=== PATIENT | female | born 1955 | race Hispanic/Latino ===

== ENCOUNTER 2017-06-28 21:17 | Inpatient (IN) | payer OTHER ==
[2017-06-28 21:17] VITALS: BMI 20.1
[2017-06-28 23:16] LABS: BASO # 0.1 K/uL (0.0-0.2); BASO % 0.6 % (0.0-2.0); EOS # 0.1 K/uL (0.0-0.7); EOS % 0.6 % (0.0-4.0); HEMATOCRIT 37.9 % (34.0-47.0); LYMPH # 1.8 K/uL (1.0-4.3); LYMPH % 16.5 % (20.0-40.0); MEAN CELL VOLUME 97.5 fl (81.0-99.0); MEAN CORPUSCULAR HGB CONC 32.8 g/dL (33.0-37.0); MEAN PLATELET VOLUME 9.7 fl (7.2-11.7); MONO # 0.7 K/uL (0.0-0.8); MONO % 6.3 % (0.0-10.0); NEUT # 8.2 K/uL (1.8-7.0); RED CELL DISTRIBUTION WIDTH 13.4 % (11.5-14.5); WHITE BLOOD COUNT 10.8 K/uL (4.8-10.8)
[2017-06-28 23:24] LABS: ALB/GLOB RATIO 1.3 (1.0-2.1); ALKALINE PHOSPHATASE 123 U/L (38-126); ALT/SGPT 38 U/L (9-52); AST/SGOT 48 U/L (14-36); BILIRUBIN,TOTAL 0.5 mg/dl (0.2-1.3); CALCIUM 9.9 mg/dL (8.4-10.2); CARBON DIOXIDE 22 mmol/L (22-30); CHLORIDE 107 mmol/L (98-107); GFR AFRICAN-AMERICAN > 60; GLUCOSE,RANDOM 92 mg/dL (65-105); POTASSIUM 3.8 MMOL/L (3.6-5.0); SODIUM 140 mmol/l (132-148); TOTAL PROTEIN 8.1 G/DL (6.3-8.2)
--- NOTE | 2017-06-28 23:36 | ED PDOC ---
HPI: Chest Pain Time Seen by Provider: 06/28/17 22:00 Chief Complaint (Nursing): Chest Pain Chief Complaint (Provider): Chest Pain History Per: Patient History/Exam Limitations: no limitations Onset/Duration Of Symptoms: Days (1 day) Current Symptoms Are (Timing): Still Present Additional Complaint(s): 61 y/o female with a past medical history of gastric ulcers and anemia, presents to the ED complaining of left-sided chest pain with an onset of one day. Patient received in field 1 nitro spray, patient took aspirin and nitro sublingual at home, and states pain has decreased. Patient reports of having a headache and resolved shortness of breath, but denies nausea, vomiting, diarrhea , abdominal pain, and any social history. Past Medical History Reviewed: Historical Data, Nursing Documentation, Vital Signs Vital Signs: Last Vital Signs Temp 98.1 F 06/30/17 11:35 Pulse 67 06/30/17 12:17 Resp 15 06/30/17 11:35 BP 105/65 06/30/17 11:35 Pulse Ox 98 06/30/17 12:17 - Medical History PMH: Anemia, Anxiety (when her dog ), Arthritis, CAD, Gastrointestinal Ulcer, Gall Bladder Disease (gallbladder stones), Hepatitis (C - no treatment), Hiatal Hernia, HTN, Hypercholesterolemia, Kidney Stones, Mitral Valve Prolapse, Osteoporosis, Chronic Kidney Disease Denies: HIV (denies) - Family History Family History: States: Unknown Family Hx - Immunization History Hx Tetanus Toxoid Vaccination: No Hx Influenza Vaccination: No Hx Pneumococcal Vaccination: No - Home Medications Home Medications: Ambulatory Orders Medication Instructions Recorded Isosorbide Dinitrate [Isordil] 20 mg PO BID 01/21/16 Lisinopril [Zestril] 20 mg PO DAILY 01/21/16 Simvastatin [Zocor] 20 mg PO DAILY 01/21/16 amLODIPine [Norvasc] 10 mg PO DAILY 01/21/16 Aspirin [Adult Low Dose Aspirin EC] 81 mg PO DAILY 06/29/17 Cyclobenzaprine HCl 10 mg PO TID PRN 06/29/17 [Cyclobenzaprine HCl] Metoprolol Tartrate [Lopressor] 50 mg PO BID 06/29/17 Nitroglycerin [Nitrostat] 0.4 mg SL ASDIR 06/29/17 Ranitidine HCl [Acid Associate Dentist] 150 mg PO BID 06/29/17 - Allergies Allergies/Adverse Reactions: Allergies Allergy/AdvReac Type Severity Reaction Status Date / Time No Known Allergies Allergy Verified 02/21/16 17:37 Review of Systems Cardiovascular: Positive for: Chest Pain (left-sided) Respiratory: Positive for: Shortness of Breath (initially but has been resolved) . Negative for: Cough Gastrointestinal: Negative for: Nausea, Vomiting, Abdominal Pain, Diarrhea Neurological: Positive for: Headache Physical Exam - Reviewed Nursing Documentation Reviewed: Yes Vital Signs Reviewed: Yes - Physical Exam Appears: Positive for: Non-toxic, No Acute Distress Head Exam: Positive for: ATRAUMATIC, NORMOCEPHALIC Skin: Positive for: Normal Color, Warm Eye Exam: Positive for: Normal appearance, EOMI, PERRL ENT: Positive for: Normal ENT Inspection Neck: Positive for: Normal, Painless ROM Cardiovascular/Chest: Positive for: Regular Rate, Rhythm. Negative for: Murmur Respiratory: Positive for: Normal Breath Sounds. Negative for: Respiratory Distress Gastrointestinal/Abdominal: Positive for: Other (midline scar on the abdomen). Negative for: Tenderness Extremity: Positive for: Normal ROM. Negative for: Pedal Edema, Deformity Neurologic/Psych: Positive for: Alert, Oriented (x3) - Laboratory Results Result Diagrams: 06/28/17 22:54 06/28/17 22:54 - ECG ECG: Positive for: Interpreted By Me, Viewed By Il ECG Rhythm: Positive for: Sinus Rhythm (normal) Rate: 67 O2 Sat by Pulse Oximetry: 98 (RA) Pulse Ox Interpretation: Normal Medical Decision Making Medical Decision Making: Time: --23:34 Impression: --61 y/o female with chest pain Plan: --CT angio chest/ Abdomen/ pelvis to rule out aneurysm --Labs --Troponin Reassess --1:16 FINDINGS:CT Angiography Abdomen and Pelvis Without and With Intravenous Contrast Lower thorax: Refer to prior report for chest findings VASCULATURE: Aorta: Abdominal aorta is mildly tortuous. Aortic caliber is normal. There is no aneurysm or dissection. There is perfusion of all major abdominal aortic branches. There are atherosclerotic calcifications at the origin of the celiac artery. There are atherosclerotic calcifications in the proximal renal arteries bilaterally. Celiac trunk and mesenteric arteries: See above. Renal arteries: See above. Iliac arteries: see above ABDOMEN: Liver: unremarkable No mass. Gallbladder and bile ducts: Gallbladder is distended with stones.There is prominence of the common duct. Pancreas: unremarkable Spleen: There are small low attenuation lesions in the spleen difficult to further characterize, unchanged. Adrenals: unremarkable Kidneys and ureters: Kidneys and ureters are unremarkable. Stomach and bowel: There is a moderately large hiatal hernia. There are postsurgical changes about the gastric body. There is a gastrojejunostomy. Gastric wall thickening seen on the prior study has decreased. Rotation is normal. Small bowel is mildly distended with enteric contents and air. There is no obstruction. There is fecalization of the distal and terminal ileum. Appendix is unremarkable. There is moderately large amount of stool throughout the colon. Appendix: unremarkable PELVIS: Bladder: unremarkable Reproductive: Uterus is absent. There are no adnexal masses. ABDOMEN and PELVIS: Intraperitoneal space: There is no free air or free fluid. Bones/joints: There are degenerative changes in the osseus structures. Soft tissues: There are multiple small fat containing ventral hernias. Lymph nodes: unremarkable IMPRESSION: No abdominal aortic aneurysm or dissection; atherosclerotic disease ; gallstones; constipation; moderate size hiatal hernia; postsurgical changes about the stomach --1:40 Waiting on approval from Dr. Fitzpatrick, in order to admit the patient --3:20 Patient to be admitted to Dr. Fitzpatrick. Going to old off on aspirin given history of GI bleed. pt to be admitted to [facility] for cardiac monitoring Scribe Attestation: Documented by Bladimir Fraser acting as a scribe for Josafat Rojas MD. Provider Attestation: All medical record entries made by the Scribe were at my direction and personally dictated by me. I have reviewed the chart and agree that the record accurately reflects my personal performance of the history, physical exam, medical decision making, and the department course for this patient. I have also personally directed, reviewed, and agree with the discharge instructions and disposition. Disposition - Clinical Impression Clinical Impression: Chest pain - Patient ED Disposition Is Patient to be Admitted: Yes Discussed With : Hakan Fitzpatrick (Patient to be Admitted) Comment: 3:20 Doctor Will See Patient In The: Hospital - Disposition Disposition Time: 02:20 Condition: FAIR
[2017-06-28 23:43] LABS: BLOOD UREA NITROGEN 17 mg/dl (7-17)
[2017-06-28] MEDS ORDERED: Iodixanol 320 MG/ML 100 ML BOTTLE IV ONE (23:43)
--- NOTE | 2017-06-29 01:16 | CT ---
EXAM: CT Angiography Chest Without and With Intravenous Contrast CLINICAL HISTORY: 61 years old, female; Pain; Chest pain; Other: R/odissection; Prior surgery; Surgery type: Hysterectomy. Gastric surgery ? ; additional info: Rule out aortic aneurism TECHNIQUE: Axial computed tomographic angiography images of the chest without and with intravenous contrast using pulmonary embolism protocol. All CT scans at this facility use one or more dose reduction techniques, viz.: automated exposure control; ma/kV adjustment per patient size (including targeted exams where dose is matched to indication; i.e. head); or iterative reconstruction technique. MIP reconstructed images were created and reviewed. Coronal and sagittal reformatted images were created and reviewed. CONTRAST: 90 mL of [id number] administered intravenously. COMPARISON: No relevant prior studies available. FINDINGS: Heart, aorta and Pulmonary arteries: Heart size is normal. There is fluid in pericardial recesses. There is no aortic aneurysm or dissection. There is perfusion of the 3 arch vessels. Descending aorta is mildly tortuous. Pulmonary arteries are unremarkable. Lungs and pleural spaces: There is minimal apical scarring. There is no lobar or segmental consolidation. There is minimal atelectasis and scarring at the lung bases. There are no effusions. Mediastinum: Esophagus is unremarkable. There is a moderate size hiatal hernia. There are no pathologically enlarged mediastinal or hilar nodes. Bones/joints: There are no acute osseous abnormalities. Soft tissues: unremarkable Upper abdomen: Refer to following report for abdominal findings IMPRESSION: No aneurysm, dissection or pulmonary embolus, no focal pneumonia; hiatal hernia EXAM: CT Angiography Abdomen and Pelvis Without and With Intravenous Contrast EXAM DATE/TIME: 06/28/2017 11:34 PM CLINICAL HISTORY: 61 years old, female; Pain; Chest pain; Other: R/odissection; Prior surgery; Surgery type: Hysterectomy. Gastric surgery ? ; additional info: Rule out aortic aneurism TECHNIQUE: Axial computed tomographic angiography images of the abdomen and pelvis without and with intravenous contrast. All CT scans at this facility use one or more dose reduction techniques, viz.: automated exposure control; ma/kV adjustment per patient size (including targeted exams where dose is matched to indication; i.e. head); or iterative reconstruction technique. MIP reconstructed images were created and reviewed. Coronal and sagittal reformatted images were created and reviewed. CONTRAST: 90 mL of [id number] administered intravenously. COMPARISON: CT - CHEST,ABD,PEL W/IV PO CONTRAST 2016-01-21 13:30 FINDINGS: Lower thorax: Refer to prior report for chest findings VASCULATURE: Aorta: Abdominal aorta is mildly tortuous. Aortic caliber is normal. There is no aneurysm or dissection. There is perfusion of all major abdominal aortic branches. There are atherosclerotic calcifications at the origin of the celiac artery. There are atherosclerotic calcifications in the proximal renal arteries bilaterally. Celiac trunk and mesenteric arteries: See above. Renal arteries: See above. Iliac arteries: see above ABDOMEN: Liver: unremarkable No mass. Gallbladder and bile ducts: Gallbladder is distended with stones.There is prominence of the common duct. Pancreas: unremarkable Spleen: There are small low attenuation lesions in the spleen difficult to further characterize, unchanged. Adrenals: unremarkable Kidneys and ureters: Kidneys and ureters are unremarkable. Stomach and bowel: There is a moderately large hiatal hernia. There are postsurgical changes about the gastric body. There is a gastrojejunostomy. Gastric wall thickening seen on the prior study has decreased. Rotation is normal. Small bowel is mildly distended with enteric contents and air. There is no obstruction. There is fecalization of the distal and terminal ileum. Appendix is unremarkable. There is moderately large amount of stool throughout the colon. Appendix: unremarkable PELVIS: Bladder: unremarkable Reproductive: Uterus is absent. There are no adnexal masses. ABDOMEN and PELVIS: Intraperitoneal space: There is no free air or free fluid. Bones/joints: There are degenerative changes in the osseus structures. Soft tissues: There are multiple small fat containing ventral hernias. Lymph nodes: unremarkable IMPRESSION: No abdominal aortic aneurysm or dissection; atherosclerotic disease; gallstones; constipation; moderate size hiatal hernia; postsurgical changes about the stomach Additional findings as described above.
[2017-06-29] MEDS: Acetaminophen-Codeine 300/30 mg Tab PO PRN (05:41)
--- NOTE | 2017-06-29 07:58 | CP.PCM.CON ---
<Nataly Butterfield - Last Filed: 06/29/17 08:24> History of Present Illness - History of Present Illness History of Present Illness: Gastroenterology Fellow/PGY5 Consult Note 61 year old female with history of CAD, Hypertension, Hyperlipidemia, Hepatitis C ([id number] VL 1,[id number]/2016), and symptomatic anemia 2/2 PUD complicated by GOO s/p retrocolic gastrojejunostomy 02/2016 presenting with chest pain. Patient notes left sided stabbing chest pain and pressure while at rest yesterday. Chest pain relieved with nitroglycerin and aspirin with endorsed pain free state this morning. She notes episode of palpitations and sensation of heart racing this morning. She notes the chest pain is similar to prior intermittent episodes. Since presentation, she mentions issues with swallowing solids for the last six weeks that is progressively worsening to point of changing diet to puree and tolerating sips of liquids. Associated vomiting within five minutes of oral intake. Notes bowel movement once a week with endorsed bowel habit prior to gastrojejunostomy of twice a week. Denies prior use of laxatives, stool softeners, or fiber supplements. Multiple prior EGDs - showing pyloric ulcers with GOO of duodenum and prior colonoscopy 30 years ago endorsed to be normal. Family- Father- Lung cnacer, prostate cancer, mother- ovarian cancer; denies stomach cancer, colon cancer Social- denies tobacco, alcohol, illicit drug use Surgery- retrocolic gastrojejunostomy/vagotomy/lymph node biopsy 02/2016, hysterectomy, surgery for ruptured ovarian cyst at 22 yo Review of Systems - Review of Systems Review of Systems: 12-point review of systems negative except for as above Past Patient History - Infectious Disease Hx of Infectious Diseases: None - Past Medical History & Family History Past Medical History?: Yes - Past Social History Smoking Status: Never Smoked - CARDIAC Hx Cardiac Disorders: Yes Hx Hypercholesterolemia: Yes Hx Hypertension: Yes Hx Mitral Valve Prolapse: Yes - PULMONARY Hx Respiratory Disorders: No - NEUROLOGICAL Hx Neurological Disorder: Yes Hx Dizziness: Yes Hx Syncope: Yes - HEENT Hx HEENT Problems: No - RENAL Hx Chronic Kidney Disease: Yes Hx Kidney Stones: Yes - ENDOCRINE/METABOLIC Hx Endocrine Disorders: No - HEMATOLOGICAL/ONCOLOGICAL Hx Blood Disorders: Yes Hx AIDS: No Hx Anemia: Yes Hx Human Immunodeficiency Virus (HIV): No - INTEGUMENTARY Hx Dermatological Problems: No - MUSCULOSKELETAL/RHEUMATOLOGICAL Hx Musculoskeletal Disorders: Yes Hx Arthritis: Yes Hx Falls: No Hx Osteoporosis: Yes - GASTROINTESTINAL Hx Gastrointestinal Disorders: Yes Hx Gall Bladder Disease: Yes (gallbladder stones) Hx Ulcer: Yes - GENITOURINARY/GYNECOLOGICAL Hx Genitourinary Disorders: Yes Hx Urinary Tract Infection: Yes (mult. urinary tract infections as per patient) Other/Comment: renal cysr - PSYCHIATRIC Hx Psychophysiologic Disorder: No Hx Substance Use: No - SURGICAL HISTORY Hx Surgeries: Yes Hx Hysterectomy: Yes (total hysterectomy at age 31) - ANESTHESIA Hx Anesthesia: Yes Hx Anesthesia Reactions: No (denies) Hx Malignant Hyperthermia: No (denies) Meds Allergies/Adverse Reactions: Allergies Allergy/AdvReac Type Severity Reaction Status Date / Time No Known Allergies Allergy Verified 02/21/16 17:37 - Medications Medications: Current Medications Acetaminophen/Codeine Phosphate (Tylenol/Codeine 300 Mg/30 Mg) 1 tab PO BID PRN PRN Reason: Pain, moderate (4-7) Last Admin: 06/29/17 05:41 Dose: 1 tab Amlodipine Besylate (Norvasc) 10 mg PO DAILY [facility] Aspirin (Ecotrin) 81 mg PO DAILY [facility] Atorvastatin Calcium (Lipitor) 10 mg PO DAILY [facility] Cyclobenzaprine HCl (Flexeril) 10 mg PO TID PRN PRN Reason: Muscle spasm Enoxaparin Sodium (Lovenox) 40 mg SC DAILY [facility] PRN Reason: Protocol Famotidine (Pepcid) 20 mg PO BID [facility] Isosorbide Dinitrate (Isordil) 20 mg PO BID [facility] Lisinopril (Zestril) 20 mg PO DAILY [facility] Metoprolol Tartrate (Lopressor) 50 mg PO BID [facility] Nitroglycerin (Nitrostat Sl Tab) 0.4 mg SL Q5MIN PRN PRN Reason: chest, anginal discomfort Physical Exam - Constitutional Appears: Non-toxic, No Acute Distress - Head Exam Head Exam: ATRAUMATIC, NORMOCEPHALIC - Eye Exam Eye Exam: EOMI, PERRL Pupil Exam: PERRL. absent: Miosis, Mydriatic - ENT Exam ENT Exam: Mucous Membranes Moist, Normal Oropharynx - Neck Exam Neck exam: Positive for: Full Rom, Normal Inspection - Respiratory Exam Respiratory Exam: Clear to Auscultation Bilateral. absent: Rales, Rhonchi, Wheezes - Cardiovascular Exam Cardiovascular Exam: RRR, +S1, +S2. absent: Gallop, Rubs - GI/Abdominal Exam GI & Abdominal Exam: Normal Bowel Sounds, Soft. absent: Distended, Firm, Guarding, Organomegaly, Rebound, Rigid, Tenderness - Extremities Exam Extremities exam: Positive for: normal inspection. Negative for: pedal edema - Neurological Exam Neurological exam: Alert - Psychiatric Exam Psychiatric exam: Normal Affect, Normal Mood - Skin Skin Exam: Dry, Intact, Normal Color, Warm Results - Vital Signs Recent Vital Signs: Last Vital Signs Temp 98.0 F 06/29/17 03:50 Pulse 75 06/29/17 03:50 Resp 20 06/29/17 04:25 BP 147/89 06/29/17 03:50 Pulse Ox 98 06/29/17 03:50 - Labs Result Diagrams: 06/28/17 22:54 06/28/17 22:54 Labs: Laboratory Results - last 24 hr 06/28/17 06/28/17 22:54 22:54 WBC 10.8 RBC 3.89 Hgb 12.4 Hct 37.9 MCV 97.5 D MCH 32.0 H MCHC 32.8 L RDW 13.4 Plt Count 263 MPV 9.7 Neut % (Auto) 76.0 H Lymph % (Auto) 16.5 L Dyer % (Auto) 6.3 Eos % (Auto) 0.6 Baso % (Auto) 0.6 Neut # 8.2 H Lymph # 1.8 Dyer # 0.7 Eos # 0.1 Baso # 0.1 Sodium 140 Potassium 3.8 Chloride 107 Carbon Dioxide 22 Anion Gap 15 BUN 17 Creatinine 1.1 Est GFR ( Amer) > 60 Est GFR (Non-Af Amer) 51 Random Glucose 92 Calcium 9.9 Total Bilirubin 0.5 AST 48 H ALT 38 Alkaline Phosphatase 123 Troponin I < 0.0120 Total Protein 8.1 Albumin 4.5 Globulin 3.5 Albumin/Globulin Ratio 1.3 Assessment & Plan - Assessment and Plan (Free Text) Assessment: 61 year old female with history of CAD, Hypertension, Hyperlipidemia, Hepatitis C ([id number] VL 1,027,539-01/2016), and symptomatic anemia 2/2 PUD complicated by GOO s/p retrocolic gastrojejunostomy 02/2016 presenting with chest pain. Active treatment of chest pain rule out ACS with GI consultation for dysphagia with history of GOO. CTA C/A/P showing moderate sized hiatal hernia and constipation with aortic aneurysm and dissection ruled out. Multiple prior EGDs 7-02/2016 showing pyloric ulcers with GOO of duodenum and prior colonoscopy 30 years ago endorsed to be normal. Plan: >first set cardiac markers negative >follow up serial cardiac markers >pending cardiology consultation >await cardiology recommendation for clearance to proceed with endoscopy >once cleared by cardiaology- consider EGD to evaluate esophageal pathology, PUD , recurrence GOO >supportive care: antiemetics >will follow clinical course <Yamileth Garza MD - Last Filed: 06/30/17 12:38> Meds - Medications Medications: Current Medications Acetaminophen/Codeine Phosphate (Tylenol/Codeine 300 Mg/30 Mg) 1 tab PO BID PRN PRN Reason: Pain, moderate (4-7) Last Admin: 06/30/17 09:09 Dose: 1 tab Atorvastatin Calcium (Lipitor) 10 mg PO DAILY [facility] Last Admin: 06/30/17 09:03 Dose: 10 mg Cholestyramine Resin (Questran) 4 gm PO DAILY [facility] Last Admin: 06/30/17 12:20 Dose: 4 gm Cyclobenzaprine HCl (Flexeril) 10 mg PO TID PRN PRN Reason: Muscle spasm Last Admin: 06/30/17 08:28 Dose: 10 mg Enoxaparin Sodium (Lovenox) 40 mg SC DAILY [facility] PRN Reason: Protocol Last Admin: 06/30/17 08:30 Dose: Not Given Lisinopril (Zestril) 20 mg PO DAILY [facility] Last Admin: 06/30/17 08:27 Dose: 20 mg Metoprolol Tartrate (Lopressor) 50 mg PO BID [facility] Last Admin: 06/30/17 08:26 Dose: 50 mg Nitroglycerin (Nitrostat Sl Tab) 0.4 mg SL Q5MIN PRN PRN Reason: chest, anginal discomfort Pantoprazole Sodium (Protonix Inj) 40 mg IVP DAILY [facility] Last Admin: 06/30/17 12:20 Dose: 40 mg Results - Vital Signs Recent Vital Signs: Last Vital Signs Temp 97.6 F 06/30/17 12:31 Pulse 20 L 06/30/17 12:31 Resp 18 06/30/17 12:31 BP 104/68 06/30/17 12:31 Pulse Ox 94 L 06/30/17 12:31 - Labs Result Diagrams: 06/28/17 22:54 06/28/17 22:54 Labs: Laboratory Results - last 24 hr 06/29/17 15:29 Troponin I < 0.0120 Attending/Attestation - Attestation I have personally seen and examined this patient.: Yes I have fully participated in the care of the patient.: Yes I have reviewed all pertinent clinical information: Yes Notes (Text): 06/30/17 12:35 Patient seen at bedside with Gi fellow. This is a 61 year old female with history of CAD, Hypertension, Hyperlipidemia, Hepatitis C ([id number] VL 1,027, 539-01/2016), and symptomatic anemia 2/2 PUD complicated by GOO s/p retrocolic gastrojejunostomy 02/2016 presenting with chest pain. She wsa seen two weeks ago in my office for similar complains and was scheduled for EGd which she refused. She was given nexium but she was non complaint in her medication regimen as she says she watched on TV that it leads to bleeding. Now she is admitted with dysphagia which is chronic for past 6 months. Cardiology is ruling out ACS. CTA C/A/P showing moderate sized hiatal hernia and constipation with aortic aneurysm and dissection ruled out. Multiple prior EGDs -02/2016 showing pyloric ulcers with GOO of duodenum and prior colonoscopy 30 years ago endorsed to be normal. Will continue supportive care and if she is cleared from cardiology point will schedule for EGD. Continue PPI and pureed diet.
[2017-06-29 08:58] LABS: CHOLESTEROL 139 mg/dL (0-199)
[2017-06-29] MEDS ORDERED: LISINOPRIL 20 MG PO SCH (09:00)
[2017-06-29] MEDS ORDERED: Patient's Own Med (Ranitidine Hcl [Acid Reducer] 150 mg) PO SCH (09:00)
--- NOTE | 2017-06-29 09:45 | CP.PCM.HP ---
<Jackie Mchugh - Last Filed: 06/29/17 09:54> History of Present Illness - History of Present Illness History of Present Illness: 61 y/o female with a PMHx of CAD, HTN, Hepatitis C, gastric ulcers and anemia. As per records patient presented yesterday to the ED complaining of left-sided chest pain with an onset of one day. Patient received in field 1 nitro spray, patient took aspirin and nitro sublingual at home, and stated pain had decreased. Patient seen and examined in Telemetry unit this morning with attending Dr. Fitzpatrick Patient denies chest pain, SOB, N/V, epigastric pain or other complains at this evaluation. Has been afebrile, and rest of VS stable WNL. No events overnight. Present on Admission - Present on Admission Any Indicators Present on Admission: No History of DVT/PE: No History of Uncontrolled Diabetes: No Urinary Catheter: No Decubitus Ulcer Present: No Review of Systems - Review of Systems All systems: reviewed and no additional remarkable complaints except (as per HPI ) Past Patient History - Infectious Disease Hx of Infectious Diseases: None - Past Medical History & Family History Past Medical History?: Yes - Past Social History Smoking Status: Never Smoked - CARDIAC Hx Cardiac Disorders: Yes Hx Hypercholesterolemia: Yes Hx Hypertension: Yes Hx Mitral Valve Prolapse: Yes - PULMONARY Hx Respiratory Disorders: No - NEUROLOGICAL Hx Neurological Disorder: Yes Hx Dizziness: Yes Hx Syncope: Yes - HEENT Hx HEENT Problems: No - RENAL Hx Chronic Kidney Disease: Yes Hx Kidney Stones: Yes - ENDOCRINE/METABOLIC Hx Endocrine Disorders: No - HEMATOLOGICAL/ONCOLOGICAL Hx Blood Disorders: Yes Hx AIDS: No Hx Anemia: Yes Hx Human Immunodeficiency Virus (HIV): No - INTEGUMENTARY Hx Dermatological Problems: No - MUSCULOSKELETAL/RHEUMATOLOGICAL Hx Musculoskeletal Disorders: Yes Hx Arthritis: Yes Hx Falls: No Hx Osteoporosis: Yes - GASTROINTESTINAL Hx Gastrointestinal Disorders: Yes Hx Gall Bladder Disease: Yes (gallbladder stones) Hx Ulcer: Yes - GENITOURINARY/GYNECOLOGICAL Hx Genitourinary Disorders: Yes Hx Urinary Tract Infection: Yes (mult. urinary tract infections as per patient) Other/Comment: renal cysr - PSYCHIATRIC Hx Psychophysiologic Disorder: No Hx Substance Use: No - SURGICAL HISTORY Hx Surgeries: Yes Hx Hysterectomy: Yes (total hysterectomy at age 31) - ANESTHESIA Hx Anesthesia: Yes Hx Anesthesia Reactions: No (denies) Hx Malignant Hyperthermia: No (denies) Meds Allergies/Adverse Reactions: Allergies Allergy/AdvReac Type Severity Reaction Status Date / Time No Known Allergies Allergy Verified 02/21/16 17:37 Physical Exam - Constitutional Appears: Non-toxic, No Acute Distress - ENT Exam ENT Exam: Mucous Membranes Moist - Respiratory Exam Respiratory Exam: Clear to Auscultation Bilateral, NORMAL BREATHING PATTERN. absent: Rales, Rhonchi, Wheezes, Respiratory Distress - Cardiovascular Exam Cardiovascular Exam: REGULAR RHYTHM, RRR, +S1, +S2 - GI/Abdominal Exam GI & Abdominal Exam: Normal Bowel Sounds, Soft. absent: Distended, Guarding, Tenderness - Extremities Exam Extremities exam: Positive for: normal inspection. Negative for: calf tenderness, pedal edema - Neurological Exam Neurological exam: Alert, Oriented x3 - Skin Skin Exam: Dry, Intact, Normal Color Results - Vital Signs Recent Vital Signs: Last Vital Signs Temp 97.9 F 06/29/17 08:08 Pulse 68 06/29/17 08:08 Resp 18 06/29/17 08:08 BP 125/81 06/29/17 08:08 Pulse Ox 97 06/29/17 08:08 - Labs Result Diagrams: 06/28/17 22:54 06/28/17 22:54 Labs: Laboratory Results - last 24 hr 06/28/17 06/28/17 06/29/17 22:54 22:54 08:40 WBC 10.8 RBC 3.89 Hgb 12.4 Hct 37.9 MCV 97.5 D MCH 32.0 H MCHC 32.8 L RDW 13.4 Plt Count 263 MPV 9.7 Neut % (Auto) 76.0 H Lymph % (Auto) 16.5 L [place] % (Auto) 6.3 Eos % (Auto) 0.6 Baso % (Auto) 0.6 Neut # 8.2 H Lymph # 1.8 [place] # 0.7 Eos # 0.1 Baso # 0.1 PT INR Sodium 140 Potassium 3.8 Chloride 107 Carbon Dioxide 22 Anion Gap 15 BUN 17 Creatinine 1.1 Est GFR ( Amer) > 60 Est GFR (Non-Af Amer) 51 Random Glucose 92 Calcium 9.9 Total Bilirubin 0.5 AST 48 H ALT 38 Alkaline Phosphatase 123 Troponin I < 0.0120 < 0.0120 Total Protein 8.1 Albumin 4.5 Globulin 3.5 Albumin/Globulin Ratio 1.3 Triglycerides 108 Cholesterol 139 LDL Cholesterol Direct 43 HDL Cholesterol 64 06/29/17 08:40 WBC RBC Hgb Hct MCV MCH MCHC RDW Plt Count MPV Neut % (Auto) Lymph % (Auto) [place] % (Auto) Eos % (Auto) Baso % (Auto) Neut # Lymph # [place] # Eos # Baso # PT 11.2 INR 1.0 Sodium Potassium Chloride Carbon Dioxide Anion Gap BUN Creatinine Est GFR ( Amer) Est GFR (Non-Af Amer) Random Glucose Calcium Total Bilirubin AST ALT Alkaline Phosphatase Troponin I Total Protein Albumin Globulin Albumin/Globulin Ratio Triglycerides Cholesterol LDL Cholesterol Direct HDL Cholesterol Assessment & Plan (1) Chest pain Assessment and Plan: R/O ACS Telemetry unit Continues cardiac monitoring Troponin x 1 neg f/u Troponin I x 2 c/w aspirin, B-lavern, Statin PO f/u lipid profile Carcdiology consulted, Dr. Barrett, recommendations appreciated Status: Acute (2) Hypertension Assessment and Plan: Controlled c/w home meds: amlodipine and Metoprolol c/w lisinopril f/u BP Status: Chronic (3) History of GI bleed Assessment and Plan: No evidence of active GI bleeding at this time H/H: wnl c/w Pepcid GI consulted, Dr. Garza, for possible EGD f/u Dr. Garza recommendations, appreciated if EGD, will need Cardiology clearance Status: Chronic (4) DVT prophylaxis Assessment and Plan: lovenox Status: Acute - Date & Time Date: 06/29/17 Time: 07:50 <Hakan Fitzpatrick K - Last Filed: 07/01/17 11:18> Results - Vital Signs Recent Vital Signs: Last Vital Signs Temp 98.8 F 07/01/17 10:30 Pulse 73 07/01/17 10:44 Resp 18 07/01/17 08:00 BP 107/72 07/01/17 10:44 Pulse Ox 96 07/01/17 08:00 - Labs Result Diagrams: 06/28/17 22:54 06/28/17 22:54 Assessment & Plan - Assessment and Plan (Free Text) Assessment: Patient was personally seen and examined by me in rounds with residents. Available labs and diagnostic data reviewed. Case, Patient's condition and management plan discussed with residents in rounds. Agree with resident's progress note. Plan: As ordered.
[2017-06-29] MEDS: Enoxaparin 40 mg Syringe SC SCH (10:24)
[2017-06-29] MEDS ORDERED: Pantoprazole 40 mg EC Tab PO SCH (12:30)
--- NOTE | 2017-06-29 17:36 | CARD ---
APPROVED REPORT EKG Measurement Heart [id number] <Conclusion> Normal sinus rhythm Nonspecific ST abnormality Abnormal ECG
[2017-06-29] MEDS ORDERED: raNITIdine HCl 150 mg/10 ml Soln Cup PO SCH (22:00)
[2017-06-30] MEDS: Enoxaparin 40 mg Syringe SC SCH (08:30)
[2017-06-30] MEDS: Acetaminophen-Codeine 300/30 mg Tab PO PRN ×2 (09:09→20:44)
--- NOTE | 2017-06-30 10:50 | CP.PCM.PCO ---
Assessment/Plan - Assessment and Plan (Free Text) Assessment: Pt seen and examined VSS, denies chest pain, shortness of breath. Plan for egd with dr joe this morning. Plan discussed with dr villegas. Ok to proceed with EGD
[2017-06-30] MEDS ORDERED: Lactated Ringer's 1,000 ML IV ONE (11:01)
[2017-06-30] MEDS ORDERED: Lidocaine 2% MPF (5 ml) Inj ONE (11:04)
[2017-06-30] MEDS ORDERED: Propofol 10 mg/ml Inj (20 ML) ONE (11:04)
--- NOTE | 2017-06-30 11:07 | CP.PCM.CON ---
History of Present Illness - History of Present Illness History of Present Illness: 61 yo female admitted with chest burning and difficulty swallowing. In 2016 was having abdominal and food retention. A gastric outlet obstruction was found due to PUD and gastrojejunostomy was performed. Had been on ranitidine 150 QD prior to admission.. Over past 6 weeks progressive difficulty ingesting solids. Lately uing purees and liquids. Vomiting 5 minutes after eating. Review of Systems - Constitutional Constitutional: absent: Chills - EENT Eyes: absent: Blurred Vision Nose/Mouth/Throat: absent: Epistaxis - Cardiovascular Cardiovascular: Chest Pain - Respiratory Respiratory: absent: Cough - Gastrointestinal Gastrointestinal: Abdominal Pain Past Patient History - Infectious Disease Hx of Infectious Diseases: None - Past Medical History & Family History Past Medical History?: Yes - Past Social History Smoking Status: Never Smoked - CARDIAC Hx Cardiac Disorders: Yes Hx Hypercholesterolemia: Yes Hx Hypertension: Yes Hx Mitral Valve Prolapse: Yes - PULMONARY Hx Respiratory Disorders: No - NEUROLOGICAL Hx Neurological Disorder: Yes Hx Dizziness: Yes Hx Syncope: Yes - HEENT Hx HEENT Problems: No - RENAL Hx Chronic Kidney Disease: Yes Hx Kidney Stones: Yes - ENDOCRINE/METABOLIC Hx Endocrine Disorders: No - HEMATOLOGICAL/ONCOLOGICAL Hx Blood Disorders: Yes Hx AIDS: No Hx Anemia: Yes Hx Human Immunodeficiency Virus (HIV): No - INTEGUMENTARY Hx Dermatological Problems: No - MUSCULOSKELETAL/RHEUMATOLOGICAL Hx Musculoskeletal Disorders: Yes Hx Arthritis: Yes Hx Falls: No Hx Osteoporosis: Yes - GASTROINTESTINAL Hx Gastrointestinal Disorders: Yes Hx Gall Bladder Disease: Yes (gallbladder stones) Hx Ulcer: Yes - GENITOURINARY/GYNECOLOGICAL Hx Genitourinary Disorders: Yes Hx Urinary Tract Infection: Yes (mult. urinary tract infections as per patient) Other/Comment: renal cysr - PSYCHIATRIC Hx Psychophysiologic Disorder: No Hx Substance Use: No - SURGICAL HISTORY Hx Surgeries: Yes Hx Hysterectomy: Yes (total hysterectomy at age 31) - ANESTHESIA Hx Anesthesia: Yes Hx Anesthesia Reactions: No (denies) Hx Malignant Hyperthermia: No (denies) Meds Allergies/Adverse Reactions: Allergies Allergy/AdvReac Type Severity Reaction Status Date / Time No Known Allergies Allergy Verified 02/21/16 17:37 - Medications Medications: Current Medications Acetaminophen/Codeine Phosphate (Tylenol/Codeine 300 Mg/30 Mg) 1 tab PO BID PRN PRN Reason: Pain, moderate (4-7) Last Admin: 06/30/17 09:09 Dose: 1 tab Amlodipine Besylate (Norvasc) 10 mg PO DAILY [facility] Last Admin: 06/30/17 08:27 Dose: 10 mg Aspirin (Ecotrin) 81 mg PO DAILY [facility] Last Admin: 06/30/17 08:27 Dose: 81 mg Atorvastatin Calcium (Lipitor) 10 mg PO DAILY [facility] Last Admin: 06/30/17 09:03 Dose: 10 mg Cyclobenzaprine HCl (Flexeril) 10 mg PO TID PRN PRN Reason: Muscle spasm Last Admin: 06/30/17 08:28 Dose: 10 mg Enoxaparin Sodium (Lovenox) 40 mg SC DAILY [facility] PRN Reason: Protocol Last Admin: 06/30/17 08:30 Dose: Not Given Isosorbide Dinitrate (Isordil) 20 mg PO BID [facility] Last Admin: 06/30/17 08:26 Dose: 20 mg Lisinopril (Zestril) 20 mg PO DAILY [facility] Last Admin: 06/30/17 08:27 Dose: 20 mg Metoprolol Tartrate (Lopressor) 50 mg PO BID [facility] Last Admin: 06/30/17 08:26 Dose: 50 mg Nitroglycerin (Nitrostat Sl Tab) 0.4 mg SL Q5MIN PRN PRN Reason: chest, anginal discomfort Physical Exam - Constitutional Appears: Well - Head Exam Head Exam: NORMAL INSPECTION - Eye Exam Eye Exam: Normal appearance Pupil Exam: PERRL - Neck Exam Neck exam: Positive for: Normal Inspection - Respiratory Exam Respiratory Exam: NORMAL BREATHING PATTERN - Cardiovascular Exam Cardiovascular Exam: REGULAR RHYTHM - GI/Abdominal Exam GI & Abdominal Exam: Normal Bowel Sounds, Soft Results - Vital Signs Recent Vital Signs: Last Vital Signs Temp 97.6 F 06/30/17 08:00 Pulse 80 06/30/17 08:27 Resp 18 06/30/17 08:00 BP 120/75 06/30/17 08:27 Pulse Ox 97 06/30/17 08:00 - Labs Result Diagrams: 06/28/17 22:54 06/28/17 22:54 Labs: Laboratory Results - last 24 hr 06/29/17 06/29/17 08:40 15:29 Hemoglobin A1c 5.6 Troponin I < 0.0120 Assessment & Plan (1) Dysphagia Assessment and Plan: Possible esophageal or gastric obstruction/ inflammation. Will evaluate with upper endoscopy. Status: Acute Priority: Medium
[2017-06-30] MEDS: Cholestyramine 4 gm/Pkt UD PO SCH (12:20)
[2017-06-30 18:37] VITALS: RESP 18
--- NOTE | 2017-06-30 19:37 | CP.PCM.PN ---
<Jackie Mchugh - Last Filed: 06/30/17 19:34> Subjective - Date & Time of Evaluation Date of Evaluation: 06/30/17 Time of Evaluation: 07:05 - Subjective Subjective: Patient seen and examined with attending Dr. Fitzpatrick in telemetry unit this morning. Patient feels well, chest pain free, and denies any complains at this evaluation. Afebrile, VS stable WNL Had an uneventful night Objective - Vital Signs/Intake and Output Vital Signs (last 24 hours): Temp Pulse Resp BP Pulse Ox 99.6 F 73 18 107/75 96 06/30/17 18:36 06/30/17 18:36 06/30/17 18:36 06/30/17 18:36 06/30/17 18:36 Intake and Output: 06/30/17 07/01/17 18:59 06:59 Intake Total 100 Balance 100 - Medications Medications: Current Medications Acetaminophen/Codeine Phosphate (Tylenol/Codeine 300 Mg/30 Mg) 1 tab PO BID PRN PRN Reason: Pain, moderate (4-7) Last Admin: 06/30/17 09:09 Dose: 1 tab Atorvastatin Calcium (Lipitor) 10 mg PO DAILY [facility] Last Admin: 06/30/17 09:03 Dose: 10 mg Cholestyramine Resin (Questran) 4 gm PO DAILY [facility] Last Admin: 06/30/17 12:20 Dose: 4 gm Cyclobenzaprine HCl (Flexeril) 10 mg PO TID PRN PRN Reason: Muscle spasm Last Admin: 06/30/17 08:28 Dose: 10 mg Enoxaparin Sodium (Lovenox) 40 mg SC DAILY [facility] PRN Reason: Protocol Last Admin: 06/30/17 08:30 Dose: Not Given Lisinopril (Zestril) 20 mg PO DAILY [facility] Last Admin: 06/30/17 08:27 Dose: 20 mg Metoprolol Tartrate (Lopressor) 50 mg PO BID [facility] Last Admin: 06/30/17 16:38 Dose: 50 mg Nitroglycerin (Nitrostat Sl Tab) 0.4 mg SL Q5MIN PRN PRN Reason: chest, anginal discomfort Pantoprazole Sodium (Protonix Inj) 40 mg IVP DAILY [facility] Last Admin: 06/30/17 12:20 Dose: 40 mg - Labs Labs: 06/28/17 22:54 12/11/17 22:54 PT 11.2 Seconds (9.8-13.1) 06/29/17 08:40 INR 1.0 (0.9-1.2) 06/29/17 08:40 - Additional Findings Additional findings: Constitutional Appears: Non-toxic, No Acute Distress - ENT Exam ENT Exam: Mucous Membranes Moist - Respiratory Exam Respiratory Exam: Clear to Auscultation Bilateral, NORMAL BREATHING PATTERN. absent: Rales, Rhonchi, Wheezes, Respiratory Distress - Cardiovascular Exam Cardiovascular Exam: REGULAR RHYTHM, RRR, +S1, +S2 - GI/Abdominal Exam GI & Abdominal Exam: Normal Bowel Sounds, Soft. absent: Distended, Guarding, Tenderness - Extremities Exam Extremities exam: Positive for: normal inspection. Negative for: calf tenderness, pedal edema - Neurological Exam Neurological exam: Alert, Oriented x3 - Skin Skin Exam: Dry, Intact, Normal Color Assessment and Plan (1) Chest pain Assessment & Plan: asymptomatic troponin x 3 negative pt had a cardiac cath last year in [facility]. Will get report as per Cardiology recommendations, Dr. Barrett F/u Dr. Barrett recommendations. Appreciated Status: Acute (2) Hypertension Status: Chronic (3) History of GI bleed Assessment & Plan: awaiting for Dr. Russell evaluation for possible EGD Dr. Russell consulted. Recommendations appreciated Status: Chronic (4) DVT prophylaxis Assessment & Plan: lovenox Status: Acute <Hakan Fitzpatrick K - Last Filed: 07/01/17 11:20> Objective - Vital Signs/Intake and Output Vital Signs (last 24 hours): Temp Pulse Resp BP Pulse Ox 98.8 F 73 18 107/72 96 07/01/17 10:30 07/01/17 10:44 07/01/17 08:00 07/01/17 10:44 07/01/17 08:00 - Medications Medications: Current Medications Acetaminophen/Codeine Phosphate (Tylenol/Codeine 300 Mg/30 Mg) 1 tab PO BID PRN PRN Reason: Pain, moderate (4-7) Last Admin: 07/01/17 10:50 Dose: 1 tab Atorvastatin Calcium (Lipitor) 10 mg PO DAILY [facility] Last Admin: 07/01/17 10:45 Dose: 10 mg Cholestyramine Resin (Questran) 4 gm PO DAILY [facility] Last Admin: 07/01/17 10:46 Dose: 4 gm Cyclobenzaprine HCl (Flexeril) 10 mg PO TID PRN PRN Reason: Muscle spasm Last Admin: 06/30/17 08:28 Dose: 10 mg Enoxaparin Sodium (Lovenox) 40 mg SC DAILY [facility] PRN Reason: Protocol Last Admin: 07/01/17 10:45 Dose: Not Given Lisinopril (Zestril) 20 mg PO DAILY [facility] Last Admin: 07/01/17 10:44 Dose: 20 mg Metoprolol Tartrate (Lopressor) 50 mg PO BID [facility] Last Admin: 07/01/17 10:44 Dose: 50 mg Nitroglycerin (Nitrostat Sl Tab) 0.4 mg SL Q5MIN PRN PRN Reason: chest, anginal discomfort Pantoprazole Sodium (Protonix Inj) 40 mg IVP DAILY [facility] Last Admin: 07/01/17 10:46 Dose: 40 mg - Labs Labs: 06/28/17 22:54 06/28/17 22:54 PT 11.2 Seconds (9.8-13.1) 06/29/17 08:40 INR 1.0 (0.9-1.2) 06/29/17 08:40 Assessment and Plan - Assessment and Plan (Free Text) Assessment: Patient was personally seen and examined by me in rounds with residents. Available labs and diagnostic data reviewed. Case, Patient's condition and management plan discussed with residents in rounds. Agree with resident's progress note. Plan: As ordered.
--- NOTE | 2017-07-01 01:12 | CP.PCM.CON ---
History of Present Illness - History of Present Illness History of Present Illness: Consultation for evaluation of chest pain HPI: Review of Systems - Review of Systems All systems: reviewed and no additional remarkable complaints except - Constitutional Constitutional: As Per HPI - EENT Eyes: As Per HPI Ears: As Per HPI Nose/Mouth/Throat: As Per HPI - Breasts Breasts: As Per HPI - Cardiovascular Cardiovascular: As Per HPI, Chest Pain - Respiratory Respiratory: As Per HPI - Gastrointestinal Gastrointestinal: As Per HPI - Genitourinary Genitourinary: As Per HPI - Reproductive: Female Reproductive:Female: As Per HPI - Menstruation Menstruation: As Per HPI - Musculoskeletal Musculoskeletal: As Per HPI - Integumentary Integumentary: As Per HPI - Neurological Neurological: As Per HPI - Psychiatric Psychiatric: As Per HPI - Endocrine Endocrine: As Per HPI - Hematologic/Lymphatic Hematologic: As Per HPI Past Patient History - Infectious Disease Hx of Infectious Diseases: None - Past Medical History & Family History Past Medical History?: Yes - Past Social History Smoking Status: Never Smoked - CARDIAC Hx Hypercholesterolemia: Yes Hx Hypertension: Yes Hx Mitral Valve Prolapse: Yes - PULMONARY Hx Respiratory Disorders: No - NEUROLOGICAL Hx Neurological Disorder: Yes Hx Dizziness: Yes Hx Syncope: Yes - HEENT Hx HEENT Problems: No - RENAL Hx Chronic Kidney Disease: Yes Hx Kidney Stones: Yes - ENDOCRINE/METABOLIC Hx Endocrine Disorders: No - HEMATOLOGICAL/ONCOLOGICAL Hx Anemia: Yes Hx Human Immunodeficiency Virus (HIV): No (denies) - INTEGUMENTARY Hx Dermatological Problems: No - MUSCULOSKELETAL/RHEUMATOLOGICAL Hx Arthritis: Yes Hx Osteoporosis: Yes - GASTROINTESTINAL Hx Gall Bladder Disease: Yes (gallbladder stones) - GENITOURINARY/GYNECOLOGICAL Hx Genitourinary Disorders: Yes Hx Urinary Tract Infection: Yes (mult. urinary tract infections as per patient) Other/Comment: renal cysr - PSYCHIATRIC Hx Anxiety: Yes (when her dog ) - SURGICAL HISTORY Hx Surgeries: Yes Hx Hysterectomy: Yes (total hysterectomy at age 31) - ANESTHESIA Hx Anesthesia: Yes Hx Anesthesia Reactions: No (denies) Hx Malignant Hyperthermia: No (denies) Meds Allergies/Adverse Reactions: Allergies Allergy/AdvReac Type Severity Reaction Status Date / Time No Known Allergies Allergy Verified 02/21/16 17:37 - Medications Medications: Current Medications Acetaminophen/Codeine Phosphate (Tylenol/Codeine 300 Mg/30 Mg) 1 tab PO BID PRN PRN Reason: Pain, moderate (4-7) Last Admin: 06/30/17 20:44 Dose: 1 tab Atorvastatin Calcium (Lipitor) 10 mg PO DAILY [facility] Last Admin: 06/30/17 09:03 Dose: 10 mg Cholestyramine Resin (Questran) 4 gm PO DAILY [facility] Last Admin: 06/30/17 12:20 Dose: 4 gm Cyclobenzaprine HCl (Flexeril) 10 mg PO TID PRN PRN Reason: Muscle spasm Last Admin: 06/30/17 08:28 Dose: 10 mg Enoxaparin Sodium (Lovenox) 40 mg SC DAILY [facility] PRN Reason: Protocol Last Admin: 06/30/17 08:30 Dose: Not Given Lisinopril (Zestril) 20 mg PO DAILY [facility] Last Admin: 06/30/17 08:27 Dose: 20 mg Metoprolol Tartrate (Lopressor) 50 mg PO BID [facility] Last Admin: 06/30/17 16:38 Dose: 50 mg Nitroglycerin (Nitrostat Sl Tab) 0.4 mg SL Q5MIN PRN PRN Reason: chest, anginal discomfort Pantoprazole Sodium (Protonix Inj) 40 mg IVP DAILY [facility] Last Admin: 06/30/17 12:20 Dose: 40 mg Physical Exam - Constitutional Appears: Well - Head Exam Head Exam: ATRAUMATIC, NORMAL INSPECTION, NORMOCEPHALIC - Eye Exam Eye Exam: EOMI, Normal appearance, PERRL Pupil Exam: NORMAL ACCOMODATION, PERRL - ENT Exam ENT Exam: Mucous Membranes Moist, Normal Exam - Neck Exam Neck exam: Positive for: Normal Inspection - Respiratory Exam Respiratory Exam: Clear to Auscultation Bilateral, NORMAL BREATHING PATTERN - Cardiovascular Exam Cardiovascular Exam: REGULAR RHYTHM, +S1, +S2, Systolic Murmur - GI/Abdominal Exam GI & Abdominal Exam: Normal Bowel Sounds, Soft. absent: Tenderness - Extremities Exam Extremities exam: Positive for: normal inspection - Back Exam Back exam: NORMAL INSPECTION - Neurological Exam Neurological exam: Alert, CN II-XII Intact, Normal Gait, Oriented x3, Reflexes Normal - Psychiatric Exam Psychiatric exam: Normal Affect, Normal Mood - Skin Skin Exam: Dry, Intact, Normal Color, Warm Results - Vital Signs Recent Vital Signs: Last Vital Signs Temp 99.0 F 07/01/17 00:14 Pulse 73 07/01/17 00:14 Resp 18 07/01/17 00:14 BP 106/72 07/01/17 00:14 Pulse Ox 95 07/01/17 00:14 - Labs Result Diagrams: 06/28/17 22:54 06/28/17 22:54 Assessment & Plan (1) CAD (coronary artery disease) Assessment and Plan: cath at [facility] showed 60% RCA and 40% mid LAD lesions etiology of chest pain atypical but patient using NTG on biweekly basis will evaluate for further risk stratification with stress test Status: Acute (2) Chest pain Status: Acute (3) Hypertension Status: Chronic (4) Stomach ulcer Status: Acute
--- NOTE | 2017-07-01 08:20 | CP.PCM.PN ---
<JeisonJackie - Last Filed: 07/01/17 08:26> Subjective - Date & Time of Evaluation Date of Evaluation: 07/01/17 Time of Evaluation: 07:10 - Subjective Subjective: As per patient patient using NTG on biweekly basisPatient seen and examined in Telemetry unit with attending Dr. Fitzpatrick this morning. Patient has been chest pain free and had an uneventful night. Patient refusing treadmill stress test, but agrees with pharmacologic stress test as per Cardiology recommendations. Patient had a cardiac Cath done last year which showed 60 % RCA,and 40 % mid LAD lesions. As per patient, she has been using NTG on biweekly basis. EGD yesterday by Dr. Russell showed chronic gastritis, reflux esophagitis Afebrile, VS stable Had an uneventful night Objective - Vital Signs/Intake and Output Vital Signs (last 24 hours): Temp Pulse Resp BP Pulse Ox 98.5 F 73 18 107/72 96 07/01/17 08:00 07/01/17 08:00 07/01/17 08:00 07/01/17 08:00 07/01/17 08:00 - Medications Medications: Current Medications Acetaminophen/Codeine Phosphate (Tylenol/Codeine 300 Mg/30 Mg) 1 tab PO BID PRN PRN Reason: Pain, moderate (4-7) Last Admin: 06/30/17 20:44 Dose: 1 tab Atorvastatin Calcium (Lipitor) 10 mg PO DAILY [facility] Last Admin: 06/30/17 09:03 Dose: 10 mg Cholestyramine Resin (Questran) 4 gm PO DAILY [facility] Last Admin: 06/30/17 12:20 Dose: 4 gm Cyclobenzaprine HCl (Flexeril) 10 mg PO TID PRN PRN Reason: Muscle spasm Last Admin: 06/30/17 08:28 Dose: 10 mg Enoxaparin Sodium (Lovenox) 40 mg SC DAILY [facility] PRN Reason: Protocol Last Admin: 06/30/17 08:30 Dose: Not Given Lisinopril (Zestril) 20 mg PO DAILY [facility] Last Admin: 06/30/17 08:27 Dose: 20 mg Metoprolol Tartrate (Lopressor) 50 mg PO BID [facility] Last Admin: 06/30/17 16:38 Dose: 50 mg Nitroglycerin (Nitrostat Sl Tab) 0.4 mg SL Q5MIN PRN PRN Reason: chest, anginal discomfort Pantoprazole Sodium (Protonix Inj) 40 mg IVP DAILY [facility] Last Admin: 06/30/17 12:20 Dose: 40 mg - Labs Labs: 06/28/17 22:54 06/28/17 22:54 PT 11.2 Seconds (9.8-13.1) 06/29/17 08:40 INR 1.0 (0.9-1.2) 06/29/17 08:40 - Constitutional Appears: Non-toxic, No Acute Distress - ENT Exam ENT Exam: Mucous Membranes Moist - Respiratory Exam Respiratory Exam: Clear to Ausculation Bilateral, NORMAL BREATHING PATTERN. absent: Chest Wall Tenderness, Rales, Rhonchi, Wheezes, Stridor - Cardiovascular Exam Cardiovascular Exam: REGULAR RHYTHM, RRR, +S1, +S2 - GI/Abdominal Exam GI & Abdominal Exam: Soft, Tenderness, Normal Bowel Sounds. absent: Distended, Guarding, Rigid - Extremities Exam Extremities Exam: Normal Inspection. absent: Calf Tenderness, Pedal Edema - Neurological Exam Neurological Exam: Alert, Awake, Oriented x3 Assessment and Plan (1) Chest pain Assessment & Plan: Pain free, unclear etiology trponin I x 3 negative Pharmacologic stress test today morning by Cardiology Dr. Barrett recommendations are appreciated Status: Acute (2) Hypertension Assessment & Plan: controlled c/w current meds Status: Chronic (3) History of GI bleed Assessment & Plan: EGD on 06/30/17 showed chronic gastritis, and reflux esophagitis, no active bleeding noted f/u GI, Dr. Russell, recommendations Status: Chronic (4) DVT prophylaxis Assessment & Plan: lovenox Status: Acute <Fitzpatrick,Hakan K - Last Filed: 07/01/17 11:22> Objective - Vital Signs/Intake and Output Vital Signs (last 24 hours): Temp Pulse Resp BP Pulse Ox 98.8 F 73 18 107/72 96 07/01/17 10:30 07/01/17 10:44 07/01/17 08:00 07/01/17 10:44 07/01/17 08:00 - Medications Medications: Current Medications Acetaminophen/Codeine Phosphate (Tylenol/Codeine 300 Mg/30 Mg) 1 tab PO BID PRN PRN Reason: Pain, moderate (4-7) Last Admin: 07/01/17 10:50 Dose: 1 tab Atorvastatin Calcium (Lipitor) 10 mg PO DAILY [facility] Last Admin: 07/01/17 10:45 Dose: 10 mg Cholestyramine Resin (Questran) 4 gm PO DAILY [facility] Last Admin: 07/01/17 10:46 Dose: 4 gm Cyclobenzaprine HCl (Flexeril) 10 mg PO TID PRN PRN Reason: Muscle spasm Last Admin: 06/30/17 08:28 Dose: 10 mg Enoxaparin Sodium (Lovenox) 40 mg SC DAILY [facility] PRN Reason: Protocol Last Admin: 07/01/17 10:45 Dose: Not Given Lisinopril (Zestril) 20 mg PO DAILY [facility] Last Admin: 07/01/17 10:44 Dose: 20 mg Metoprolol Tartrate (Lopressor) 50 mg PO BID [facility] Last Admin: 07/01/17 10:44 Dose: 50 mg Nitroglycerin (Nitrostat Sl Tab) 0.4 mg SL Q5MIN PRN PRN Reason: chest, anginal discomfort Pantoprazole Sodium (Protonix Inj) 40 mg IVP DAILY [facility] Last Admin: 07/01/17 10:46 Dose: 40 mg - Labs Labs: 06/28/17 22:54 06/28/17 22:54 PT 11.2 Seconds (9.8-13.1) 06/29/17 08:40 INR 1.0 (0.9-1.2) 06/29/17 08:40 Assessment and Plan - Assessment and Plan (Free Text) Assessment: Patient was personally seen and examined by me in rounds with residents. Available labs and diagnostic data reviewed. Case, Patient's condition and management plan discussed with residents in rounds. Agree with resident's progress note. Plan: As ordered.
[2017-07-01] MEDS ORDERED: Aminophylline 25 mg/ml Inj ONE (09:52)
[2017-07-01] MEDS: Enoxaparin 40 mg Syringe SC SCH (10:45)
[2017-07-01] MEDS: Cholestyramine 4 gm/Pkt UD PO SCH (10:46)
[2017-07-01] MEDS: Acetaminophen-Codeine 300/30 mg Tab PO PRN (10:50)
[2017-07-01 15:56] VITALS: BP 112/72; TEMP 98.9; O2SAT 95
[2017-07-01 22:26] VITALS: PULSE 67
--- NOTE | 2017-07-02 05:36 | CP.PCM.PN ---
Subjective - Date & Time of Evaluation Date of Evaluation: 07/01/17 Time of Evaluation: 18:30 - Subjective Subjective: s/p stress test results reviewed stable for dc home Objective - Vital Signs/Intake and Output Vital Signs (last 24 hours): Temp Pulse Resp BP Pulse Ox 98.9 F 67 18 112/72 95 07/01/17 15:55 07/01/17 19:30 07/01/17 15:55 07/01/17 16:30 07/01/17 15:55 Intake and Output: 07/01/17 07/02/17 18:59 06:59 Intake Total 860 Output Total 700 Balance 160 - Labs Labs: 06/28/17 22:54 06/28/17 22:54 PT 11.2 Seconds (9.8-13.1) 06/29/17 08:40 INR 1.0 (0.9-1.2) 06/29/17 08:40 - Constitutional Appears: Well - Head Exam Head Exam: ATRAUMATIC, NORMAL INSPECTION, NORMOCEPHALIC - Eye Exam Eye Exam: EOMI, Normal appearance, PERRL Pupil Exam: NORMAL ACCOMODATION, PERRL - ENT Exam ENT Exam: Mucous Membranes Moist, Normal Exam - Neck Exam Neck Exam: Full ROM, Normal Inspection. absent: Lymphadenopathy - Respiratory Exam Respiratory Exam: Clear to Ausculation Bilateral, NORMAL BREATHING PATTERN - Cardiovascular Exam Cardiovascular Exam: REGULAR RHYTHM, +S1, +S2, Murmur - GI/Abdominal Exam GI & Abdominal Exam: Soft, Normal Bowel Sounds. absent: Tenderness - Extremities Exam Extremities Exam: Full ROM, Normal Capillary Refill, Normal Inspection. absent : Joint Swelling, Pedal Edema - Back Exam Back Exam: NORMAL INSPECTION - Neurological Exam Neurological Exam: Alert, Awake, CN II-XII Intact, Normal Gait, Oriented x3 - Psychiatric Exam Psychiatric exam: Normal Affect, Normal Mood - Skin Skin Exam: Dry, Intact, Normal Color, Warm Assessment and Plan (1) CAD (coronary artery disease) Assessment & Plan: s/p stress test no evidence of ischemia stable for dc home cont gdmt known 40% LAD and 60% RCA lesions based on cath from [facility] in 2012 Status: Acute (2) Chest pain Assessment & Plan: etiology ? GI related Status: Acute (3) Hypertension Status: Chronic (4) Stomach ulcer Status: Acute
--- NOTE | 2017-07-02 07:34 | CARD ---
APPROVED REPORT Protocol: LEXISCAN Test Type: Stress Nuclear Medications: Tylenol/Codeine 300 Mg, Lipitor 10 M, Questran 4 Mg, Flexeril 10 Mg, Lovenox 40 Mg, Zestril 20 Mg, , Lopressor 50 Mg Nitrostat SI Tab 0.4 Mg, Protonix 40 Mg Medical History: PMHx of CAD, Hypertension, Hepatitis C, Gastric Ulcers and Anemia, Syncope, Kidney Stones, Urinary Tract Infections, Renal Cyst, Total Hysterectomy Target HR: 160 bpm Resting ECG: normal Resting Heart Rate: 82 bpm Resting Blood Pressure: 123/74mmHg submaximum (85%): 136 bpm TEST SUMMARY [id number]. [id number]. INJECTIONNS [id number]. INJECTIONNUC [id number]. [id number]. PROCEDURE Pharmacologic stress testing was performed using 0.4mg per 5ml of regadenoson given intravenously over 7-10 seconds. POST EXERCISE Reason for Termination: Pharmacologic Stress Test Target HR: No Max HR: 100 bpm 71% of Maximum Predicted HR: 160 bpm Exercise duration: 01:00 min:sec, 0 Stage Exercise capacity: 1.0METs Max Blood Pressure: 145/70mmHg Blood Pressure response to exercise: normal resting BP - appropriate response Heart Rate response to exercise: appropriate Chest Pain: No, none Angina index: 0 Arrhythmia: No, none ST Change: No, none Deviation: 0 mm Clinical Indications Under Appropriate Use Criteria This 61-year-old female with a history of hypertension and dyslipidemia underwent this study to evaluate her for evidence of potentially ischemic myocardium. The patient was hospitalized complaining of chest pain and an acute coronary syndrome was ruled out. The patient had undergone a coronary angiography in 2012 but no coronary intervention had been done. There was no history of prior myocardial infarction. Her resting electric cardiogram showed sinus rhythm at [address] changes. There were no Q waves on the electric cardiogram. Her resting blood pressure was 123/74 mmHg. Her cardiac auscultation was unremarkable. Stress EKG Interpretation The patient underwent an initial myocardial perfusion imaging after 10 mCi of sestamibi was given intravenously followed 45 minutes later by myocardial scanning. An hour and a half from the initial administration of sestamibi, the patient was given 0.4 mg of Lexiscan intravenously over 10 seconds followed immediately by 30 mCi of sestamibi given intravenously. The patient tolerated Lexiscan infusion without any chest pain and there were no EKG changes of myocardial ischemia following Lexiscan infusion. The patient left the stress lab symptom free and hemodynamically stable. 45 minutes later the patient underwent a second myocardial scan. The 2 sets of images were processed. Gated and planar images were acquired. Tomographic images were examined. EXAM: Myocardial Perfusion REST/STRESS Image QualityGood Imaging Protocol The imaging protocol used to acquire images was Rest Tc-99m/stress Tc-99m 1 day Rest Spect myocardial perfusion imaging was performed in supine position 30 minutes following the injection of 10 mCi of Tc-99 Myoview. Time of rest injection: 7:59 Time of rest imagin:30 Time of stress injection: 10:30 Time of stress imagin:00 Gated Stress Spect was performed 90 minutes after intravenous Tc-99 Myoview injection. The images were gated to evaluate regional wall motion and calculate ventricular ejection fraction. LV Perfusion Both the resting as well as post Lexiscan images showed normal regional sestamibi uptake. Wall Motion Gated images showed a normal-sized left ventricle with normal regional wall motion and wall thickening. Her resting left ventricular ejection fraction was 79%. CONCLUSION 1. The test failed to demonstrate any areas of potentially ischemic myocardium. Her resting left ventricular ejection fraction was 79%. Recommendation Continue coronary risk factor management.
== END 2017-07-01 20:20 | disposition home or self-care (01) | DRG 132 ==
LOC: H.ER 21:17 → H.ERHOLD 06-29 02:31 → H.TEL 06-29 04:15 → OBSVTOIN 06-30 15:34
PROVIDERS: ADMIT Internal Medicine; ATTEND Internal Medicine
PROC: 0DB68ZX Excision of Stomach, Via Natural or Artificial Opening Endoscopic, Diagnostic (ICD-10-PCS; 2017-06-30)
PROC: 0DB58ZX Excision of Esophagus, Via Natural or Artificial Opening Endoscopic, Diagnostic (ICD-10-PCS; principal; 2017-06-30 10:00)
DX: I25.10 Atherosclerotic heart disease of native coronary artery without angina pectoris (principal); N18.9 Chronic kidney disease, unspecified; R13.10 Dysphagia, unspecified; R07.89 Other chest pain; E78.5 Hyperlipidemia, unspecified; I12.9 Hypertensive chronic kidney disease with stage 1 through stage 4 chronic kidney disease, or unspecified chronic kidney disease; M81.0 Age-related osteoporosis without current pathological fracture; K25.9 Gastric ulcer, unspecified as acute or chronic, without hemorrhage or perforation; K21.0 Gastro-esophageal reflux disease with esophagitis; K29.50 Unspecified chronic gastritis without bleeding; I34.1 Nonrheumatic mitral (valve) prolapse